=== PATIENT | female | born 1980 | race Caucasian/White ===

== ENCOUNTER 2017-11-22 23:25 | Emergency (ER) | payer OTHER ==
--- NOTE | 2017-11-23 00:45 | ER Document Report ---
HPI - HPI Patient complains to provider of: left foot injury Pain Level: 3 Context: Patient is a 37-year-old female comes emergency department for chief complaint of injury to her left ankle/foot, she states [place] the [place] with [place] and they were throwing game pieces at a data, she was struck in the inner part of the left foot with a wooden piece from the game. She reports swelling and pain, she went home and took ibuprofen, states it was throbbing and she decided to come get evaluated. She denies any other injuries. She is not on any daily medications. Past Medical History - General Information source: Patient - Social History Smoking Status: Never Smoker Drug Abuse: None Lives with: Family Family History: Reviewed & Not Pertinent - Medical History Medical History: Negative Surgical Hx: Negative - Immunizations Immunizations up to date: Yes Hx Diphtheria, Pertussis, Tetanus Vaccination: Yes Vertical Provider Document - CONSTITUTIONAL General Appearance: WD/WN, No Apparent Distress - INFECTION CONTROL TRAVEL OUTSIDE OF THE [place] IN LAST 30 DAYS: No - HEENT HEENT: Atraumatic, Normocephalic - RESPIRATORY Respiratory: Breath Sounds Normal, No Respiratory Distress - CARDIOVASCULAR Cardiovascular: Regular Rate, Regular Rhythm - MUSCULOSKELETAL/EXTREMETIES Musculoskeletal/Extremeties: Tender - There is a small abrasion over the left medial foot just anterior and inferior to the medial malleolus, mild soft tissue swelling and pain around this area, no pain over the dorsum of the foot, normal ankle, leg, knee exam otherwise, normal capillary refill and sensation Course - Vital Signs Vital signs: Temp Pulse Resp BP Pulse Ox 99.7 F 88 18 139/78 H 99 11/22/17 23:29 11/22/17 23:29 11/22/17 23:29 11/22/17 23:29 11/22/17 23:29 - Diagnostic Test Radiology reviewed: Image reviewed, Reports reviewed Discharge - Discharge Clinical Impression: Left ankle injury Qualifiers: Encounter type: initial encounter Qualified Code(s): S99.912A - Unspecified injury of left ankle, initial encounter Condition: Stable Disposition: HOME, SELF-CARE Additional Instructions: Examination and workup consistent with soft tissue swelling but no fracture or concerning abnormality is seen. This should resolve with time. I recommend using the crutches the next 2-3 days, ice 3-4 times a day for 10-15 minutes, take anti-inflammatory medication such as ibuprofen or naproxen. Follow-up with primary care. Return for any concerning symptoms including severe pain or swelling.
--- NOTE | 2017-11-23 00:55 | RADIOLOGY REPORT (SQ) ---
EXAM DESCRIPTION: ANKLE LEFT COMPLETE CLINICAL HISTORY: injury to left ankle with pain. COMPARISON: None. FINDINGS: 3 views of the left ankle. No acute fracture or dislocation. Normal osseous mineralization. Tibial plafond and talar dome have normal appearance. Base of the fifth metatarsal tarsal is intact. IMPRESSION: No acute fracture or dislocation.
[2017-11-23] MEDS ORDERED: DIPH/PERTUSS(ACELL)/TETANUS VAC/PF 0.5 ML SYR (>=10YO) IM ONE (01:30)
[2017-11-23 03:25] VITALS: BP 113/68
== END 2017-11-23 03:25 | disposition home or self-care (01) ==
LOC: ER 23:25
DX: S99.912A Unspecified injury of left ankle, initial encounter (principal); S90.812A Abrasion, left foot, initial encounter; W20.8XXA Other cause of strike by thrown, projected or falling object, initial encounter; Y93.89 Activity, other specified; Y92.832 Beach as the place of occurrence of the external cause
CPT/HCPCS: 99283